=== PATIENT | female | born 1930 | race Caucasian/White ===

== ENCOUNTER 2017-12-28 13:52 | Inpatient (IN) | payer MEDICARE ==
[~2017-12-28] VITALS: Ht 175.3 cm; Wt 49.9 kg
--- NOTE | 2017-12-28 14:09 | NUR ---
87 YO FEMALE BIB [facility]. PATIENT IS ALERT AND ORIENTED, STATES SHE HAD A MECHANICAL FALL, DENIES KO, HAS RIGHT LEG PAIN. RIGHT LEG IS NOTED TO BE SHORTENED AND INTERNALLY ROTATED, GOOD PMS DISTAL TO PAIN SITE. PATIENT WAS DS TO ER BED, SKIN WARM AND DRY, RESP EVEN AND UNLABORED. AWAITING ORDERS FROM PROVIDER, WILL CONTINUE TO MONITOR
--- NOTE | 2017-12-28 14:12 | NUR ---
NOTED RIGHT FA SKIN TEAR
[2017-12-28] MEDS ORDERED: MORPHINE SULFATE INJ 2 MG/ML DISP.SYRIN ONE ×2 (14:16→14:47)
--- NOTE | 2017-12-28 14:20 | NUR ---
RECEIVED PATIENT FROM EMERGENCY ROOM NURSE KIKA. PATIENT IS COMPLAINING OF 5/10 RIGHT HIP PAIN BUT IMPROVED AFTER ADMINISTRATION OF MORPHINE AND FENTANYL PER PATIENT. BEDSIDE RAILS ARE UPX2. BED IS LOCKED AND LOWERED. IV LINE IS INTACT AND PATENT. CALL LIGHT IS WITHIN REACH. WILL CONTINUE TO MONITOR. Addendum: 12/28/17 at 1751 by TONYA MOLINA RN NOTE SHOULD READ AT 16:20.
[2017-12-28] MEDS ORDERED: IV NS 0.9% 500 ML BAG IV ONE (14:30)
[2017-12-28] MEDS ORDERED: MORPHINE SULFATE INJ 2 MG/ML DISP.SYRIN IV ONE ×2 (14:30→15:00)
[2017-12-28 14:34] LABS: BASOPHILS # (AUTO) 0.1 /CMM (0.0-0.2); BASOPHILS % (AUTO) 0.4 % (0.0-2.0); EOSINOPHILS % (AUTO) 1.4 % (0.0-6.0); HEMATOCRIT 40 % (33-45); HEMOGLOBIN 12.6 g/dL (11.5-14.8); LYMPHOCYTES % (AUTO) 13.9 % (20.0-44.0); MEAN CORPUSCULAR HEMOGLOBIN 22 PG (26.0-33.0); MEAN CORPUSCULAR HGB CONC 31 g/dl (31.0-36.0); MEAN CORPUSCULAR VOLUME 71 fL (82-100); MONOCYTES # (AUTO) 0.5 /CMM (0.1-1.30); MONOCYTES % (AUTO) 3.2 % (2.0-12.0); NEUTROPHILS # (AUTO) 11.6 /CMM (1.8-8.9); NEUTROPHILS % (AUTO) 81.1 % (43.0-81.0); PLATELET COUNT (AUTO) 443 /CMM (150-450); RED BLOOD CELL COUNT(AUTO) 5.68 MIL/uL (4.0-5.2); WHITE BLOOD COUNT (AUTO) 14.4 K/uL (4.3-11.0)
[2017-12-28 14:43] LABS: CALCIUM, SERUM 9.5 mg/dL (8.5-10.1); CARBON DIOXIDE 30 mmol/L (21-32); CHLORIDE 105 mmol/L (98-107); CREATININE 0.8 mg/dL (0.6-1.3); GLUCOSE 97 mg/dL (74-106); POTASSIUM 4.5 mmol/L (3.5-5.1); SODIUM SERUM 137 mmol/L (136-145); UREA NITROGEN, BLOOD 21 mg/dL (7-18)
[2017-12-28 14:48] LABS: INR 1.02 (0.85-1.15)
[2017-12-28 14:51] LABS: TROPONIN I < 0.017 ng/mL (0.00-0.056)
--- NOTE | 2017-12-28 14:55 | NUR ---
PATIENTS DAUGHTER LEFT CONCTACT INFO
--- NOTE | 2017-12-28 15:19 | NUR ---
seven ced[facility] took report for mariely
[2017-12-28] MEDS ORDERED: POLY17PO4 PO (15:28)
[2017-12-28] MEDS ORDERED: PANT20TA2 PO (15:28)
[2017-12-28] MEDS ORDERED: DIPH25CA46 PO (15:28)
[2017-12-28] MEDS ORDERED: ACET-868 PO (15:28)
[2017-12-28] MEDS ORDERED: MULT-24 PO (15:28)
[2017-12-28] MEDS ORDERED: LISI-607 PO (15:28)
[2017-12-28] MEDS ORDERED: DOCU-141 PO (15:28)
[2017-12-28] MEDS ORDERED: FENTANYL PF 100MCG/2ML AMPUL IV ONE (15:30)
[2017-12-28] MEDS ORDERED: ONDANSETRON HCL/PF 4 MG/2 ML VIAL IVP ONE (15:30)
[2017-12-28] MEDS ORDERED: IV NS 0.9% 1,000 ML BAG IV ONE (15:30)
--- NOTE | 2017-12-28 15:31 | NUR ---
CALLED ANGEL[facility] FIERRO [facility]CHER ELECTROLYTIC WAS PAGED.
[2017-12-28] MEDS ORDERED: FENTANYL PF 100MCG/2ML AMPUL ONE (15:38)
[2017-12-28] MEDS ORDERED: ONDANSETRON HCL/PF 4 MG/2 ML VIAL ONE (15:38)
[2017-12-28] MEDS ORDERED: ZOLPIDEM TARTRATE 5 MG TABLET PO PRN (16:00)
[2017-12-28] MEDS ORDERED: ACETAMINOPHEN 325 MG TABLET PO PRN ×2 (16:00→18:30)
[2017-12-28] MEDS ORDERED: ONDANSETRON HCL/PF 4 MG/2 ML VIAL IVP PRN (16:00)
[2017-12-28] MEDS ORDERED: MAGNESIUM HYDROXIDE 30 ML UDC PO PRN (16:00)
[2017-12-28] MEDS ORDERED: HYDROCODONE/APAP 5/325MG 1 EACH TABLET PO PRN (16:00)
[2017-12-28] MEDS ORDERED: Z GUARD REMEDY 2 OZ OINT TP PRN (16:00)
[2017-12-28] MEDS ORDERED: MAG HYDROX/AL HYDROX/SIMETH 30 ML UDC PO PRN (16:00)
--- NOTE | 2017-12-28 16:20 | NUR ---
transported pt to ms bed with emt without incident
--- NOTE | 2017-12-28 16:40 | NUR ---
PATIENT CONTINUES TO REFUSE KRUSE CATHETER. PER ER NURSE KIKA PATIENT HAS BEEN REFUSING KRUSE CATHETER SINCE ADMISSION TO ER. EXPLAINED RISKS AND BENEFITS OF INSERTING KRUSE CATHETER. PATIENT CONTINUES TO REFUSE. WILL CONTINUE ATTEMPTING TO CONVINCE PATIENT.
--- NOTE | 2017-12-28 17:30 | NUR ---
PATIENT REFUSES SKIN ASSESSMENT OF HER BACK AND BUTTOCKS AREA DUE TO NOT WANTING TO MOVE BECAUSE IT HURTS. THERE IS A RIGHT ELBOW SKIN TEAR. PICTURE WAS TAKEN AND DOCUMENTED.
--- NOTE | 2017-12-28 17:56 | NUR ---
INFORMED COUREY REGARDING ORTHO EVALUATION.
[2017-12-28] MEDS ORDERED: diphenhydrAMINE HCL 25 MG CAPSULE PO PRN (18:30)
[2017-12-28] MEDS ORDERED: POLYETHYLENE GLYCOL 3350 17 GM POWD.PACK PO PRN (18:30)
--- NOTE | 2017-12-28 18:57 | NUR ---
MS RN CLOSING NOTES PATIENT IS IN STABLE CONDITION. IN NO APPARENT DISTRESS. BEDSIDE RAILS ARE UPX2. BED IS LOCKED AND LOWERED. CALL LIGHT IS WITHIN REACH. ALL NEEDS WERE MET. IV LINE IS INTACT AND PATENT. WILL ENDORSE CARE TO BRIM CUTTER NURSE FOR LALA.
--- NOTE | 2017-12-28 19:20 | NUR ---
MS/SOCIAL MEDIA CONTENT MANAGER; RECEIVED PT IN BED AWAKE, ALERT AND VERBALLY RESPONSIVE. HL ON LT WRIST INTACT. PT IS WEARING DIAPER. AT THIS TIME ALSO OPERATOR COMMAND SUPPORT SYSTEMS CAME TO DO X RAY TO RT HIP AND DAY SHIFT RNTONYA TALKED TO THE OPERATOR COMMAND SUPPORT SYSTEMS ABOUT THE X RAY ORDER. HE SAID THE PT REFUSED THE X RAY DUE TO PAIN. BED ON LOWER POSITION AND LOCKED FOR SAFETY. SIDE RAILS ARE UP FOR SAFETY. CONTINUE TO MONITOR. CALL LIGHT WITHIN REACH.
--- NOTE | 2017-12-28 19:50 | NUR ---
MS/JEWELLERY DESIGNER; DR. PEREZ WITH ORDERS TO INSERT FC, APPLIED DVT PUMP AND X RAY RT FEMUR AND CHARGE NURSE DI CASTILLO AND HE TOLD ME TO GIVE PT PAIN SHOT SO THAT THE X RAY RT FEMUR CAN BE DONE. SO I TOLD THE RN WHO IS COVERING MY IV MED TO GIVE PT PAIN SHOT.
[2017-12-28] MEDS: MORPHINE SULFATE INJ 2 MG/ML DISP.SYRIN IV PRN (19:56)
--- NOTE | 2017-12-28 19:59 | NUR ---
PRN MORPHINE: PT C/O PAIN ON HER RIGHT HIP REQUESTING FOR PAIN MEDICATION, VS TAKEN AND RECORDED 153/70 HR 66 SPO2 96% RR 18, PRN MORPHINE 2MG IVP ADMINISTERED AT THIS TIME, WILL CONTINUE TO MONITOR AND REASSES
[2017-12-28 20:00] VITALS: BP 153/70
--- NOTE | 2017-12-28 20:00 | NUR ---
MS/LVNL I TOLD AND EXPLAINED TO THE PT THAT I NEED TO INSERT FC ORDERED BY THE DOCTOR. BUT PT REFUSED BADLY AND ALSO REFUSED THE DVT PUMP . I TOLD THE CHARGE NURSE OF THE ABOVE AND HE TALKED TO THE PT.
[2017-12-29] MEDS: MORPHINE SULFATE INJ 2 MG/ML DISP.SYRIN IV PRN ×3 (00:03→15:55)
--- NOTE | 2017-12-29 00:04 | NUR ---
PRN MORPHINE: PT C/O 02/21 PAIN ON RIGHT HIP REQUESTING FOR PAIN MEDICATION, PRN MORPHINE 2MG IVP ADMINISTERED TO THE PT AT THIS TIME, WILL CONTINUE TO MONITOR AND REASSESS
--- NOTE | 2017-12-29 05:00 | NUR ---
MS/CROCHETER HAND; INCONTINENT OF URINE LARGE AMOUNT YELLOW COLOR. PERINEAL CARE DONE. PT WAS SCREAMING NOT TO BE CHANGED. I EXPLAINED TO THE PT THAT WE NEED TO CLEAN HER UP AND CHANGE THE DIAPER. PT SAID IT IS PAINFUL . ALSO I DID ENCOURAGE AGAIN THE PT REGARDING TO PUT THE KRUSE CATH AND RE EXPLAINED TO HER AGAIN THE IMPORTANCE OF THE FC. AND SHE WILL HAVE PAIN SHOT. WAS ABLE TO CLEAN HER UP AND INSERTED FC FR # 16 WITH YELLOW RETURN. BED LINEN AND GOWN CHANGED. REPOSITIONED FOR COMFORT.
--- NOTE | 2017-12-29 05:39 | NUR ---
PRN MORPHINE: PT SCREAMING YELLING CRYING DUE TO RIGHT HIP PAIN, PRN MORPHINE 2 MG IVP ADMINISTERED AT THIS TIME, WILL CONTINUE TO MONITOR AND REASSESS PT'S PAIN LEVEL
[2017-12-29] MEDS ORDERED: IV NS 0.9% 1,000 ML IV PRN (06:46)
--- NOTE | 2017-12-29 06:58 | NUR ---
MS/ELECTRONIC DEVELOPMENT TECHNICIAN; DR. LEO CHECKED THE PT WITH ORDERS. PT SLEEPING AT THIS TIME. PT ON NPO OBSERVED. WILL ENDORSE TO THE DAY SHIFT NURSE.
--- NOTE | 2017-12-29 07:00 | NUR ---
RN OPENING NOTES RECEIVED PT. IN BED NPO AFTER MIDNIGHT. PT. IS AWAKE, A&OX3. BREATHING UNLABORED, AND EVENLY ON ROOM AIR. NO S/S OF ACUTE DISTRESS. PT. DENIES PAIN WHEN NOT MOVING IN BED. IV ACCESS IS INTACT AND PATENT AT LEFT WRIST SITE. KRUSE CATHETER CLEAR, AND YELLOW URINE OUTPUT. BED IS IN LOWEST, AND LOCKED POSITION. 2 SIDE RAILS UP, AND INSTRUCTED PT. TO USE CALL LIGHT FOR ASSISTANCE. ALL NEEDS MET. WILL CONTINUE TO ASSESS AND MONITOR.
[2017-12-29] MEDS ORDERED: PANTOPRAZOLE 40 MG/PACK PACK PO SCH (07:30)
[2017-12-29 07:43] LABS: EOSINOPHILS % (AUTO) 0.3 % (0.0-6.0); HEMATOCRIT 36 % (33-45); HEMOGLOBIN 11.2 g/dL (11.5-14.8); LYMPHOCYTES # (AUTO) 1.1 /CMM (0.8-4.8); LYMPHOCYTES % (AUTO) 8.2 % (20.0-44.0); MEAN CORPUSCULAR HEMOGLOBIN 23 PG (26.0-33.0); MEAN CORPUSCULAR HGB CONC 31 g/dl (31.0-36.0); MEAN CORPUSCULAR VOLUME 73 fL (82-100); MONOCYTES # (AUTO) 0.6 /CMM (0.1-1.30); MONOCYTES % (AUTO) 4.5 % (2.0-12.0); PLATELET COUNT (AUTO) 394 /CMM (150-450); RDW COEFFICIENT OF VARIATION 22.8 (11.5-15.0); RED BLOOD CELL COUNT(AUTO) 4.89 MIL/uL (4.0-5.2); WHITE BLOOD COUNT (AUTO) 13.8 K/uL (4.3-11.0)
[2017-12-29 08:00] VITALS: BP 148/75
--- NOTE | 2017-12-29 08:00 | NUR ---
PT. WAS PLACED ON TELE MONITORING PER MD. PT. TELE READING IS ATRIAL FIBRILLATION 63 BPM.
[2017-12-29 08:03] LABS: CHOLESTEROL 155 mg/dL (<200); HDL CHOLESTEROL 57 mg/dL (40-60); LDL 90 mg/dL (0-99); TRIGLYCERIDES 57 mg/dL (30-150)
[2017-12-29 08:13] LABS: CALCIUM, SERUM 9.1 mg/dL (8.5-10.1); CARBON DIOXIDE 27 mmol/L (21-32); CHLORIDE 104 mmol/L (98-107); CREATININE 0.6 mg/dL (0.6-1.3); GLUCOSE 102 mg/dL (74-106); MAGNESIUM 1.7 mg/dL (1.8-2.4); PHOSPHORUS 3.1 mg/dL (2.5-4.9); POTASSIUM 4.5 mmol/L (3.5-5.1); SODIUM SERUM 137 mmol/L (136-145); UREA NITROGEN, BLOOD 16 mg/dL (7-18)
[2017-12-29] MEDS: DOCUSATE SODIUM 100 MG CAPSULE PO SCH ×2 (08:37→17:00)
[2017-12-29] MEDS ORDERED: MULTIVITAMINS,THERAGRAN 1 UDTAB TABLET PO SCH (09:00)
[2017-12-29] MEDS ORDERED: LISINOPRIL (5MG) 5 MG TABLET PO SCH (09:00)
[2017-12-29 09:23] LABS: IRON, SERUM 50 ug/dl (50-175); TOTAL IRON BINDING CAPACITY 366 ug/dl (250-450)
--- NOTE | 2017-12-29 09:32 | NUR ---
TALKED TO PT.'S DAUGHTER LATONYA GOMEZ ON THE PHONE ABOUT THE SURGICAL PROCEDURE TODAY. REPORTED TO THE DAUGHTER THAT THE SURGEON WILL BE HERE AT 1 PM AND WOULD LIKE TO SPEAK TO HER IN PERSON IN FRONT OF HER MOTHER BEFORE AGREEING TO DO THE PROCEDURE. LATONYA CONFIRMED THAT SHE WILL BE HERE A FEW MINUTES BEFORE 1 PM TO SEE THE DOCTOR.
[2017-12-29 10:04] LABS: TROPONIN I < 0.017 ng/mL (0.00-0.056)
[2017-12-29 10:12] LABS: FERRITIN 20 ng/mL (8-388); THYROID STIMULATING HORMONE 2.703 uIU/mL (0.358-3.74)
[2017-12-29 11:38] LABS: BAND % (MANUAL) 2 % (0.0-5.0); LYMPHOCYTES % (MANUAL) 7 % (16-48); MONOCYTES % (MANUAL) 2 % (0-11.0); NEUTROPHILS % (MANUAL) 89 (42-76)
[2017-12-29] MEDS ORDERED: HYDR-3972 PO (11:56)
[2017-12-29] MEDS ORDERED: Morphine Sulfate Inj IV (11:56)
[2017-12-29] MEDS ORDERED: MAG30ORA PO (11:56)
[2017-12-29] MEDS ORDERED: MAGN400O6 PO (11:56)
[2017-12-29 12:00] VITALS: BP 152/70
[2017-12-29] MEDS: Magnesium 1GM/D5W 100ML PREMIX 100 ML IV SCH ×2 (12:08→13:15)
--- NOTE | 2017-12-29 13:44 | NUR ---
RN NOTES PER CHARGE NURSE, PT.'S FAMILY DECIDED TO TRANSFER PT. TO [facility] FOR SURGICAL PROCEDURE. PT. WILL RESUME REGULAR DIET. AT THIS TIME PT. IS AWAITING WHEN A BED BECOMES AVAILABLE AT [facility].
[2017-12-29 16:00] VITALS: BP 148/75
--- NOTE | 2017-12-29 17:00 | NUR ---
GAVE A PHONE REPORT TO QIANA HAYWOOD AT [facility]. PT. WILL BE GOING TO ROOM 5210. ALL QUESTIONS ANSWERED.
--- NOTE | 2017-12-29 19:36 | NUR ---
DIRECT CARE PROFESSIONAL PT. WAS DISCHARGED TO [facility] IN STABLE CONDITION. PT. LEFT BY AMBULANCE. DISCHARGE INSTRUCTIONS WERE PROVIDED AND PT. VERBALIZED UNDERSTANDING. DISCHARGE PAPERS WERE SIGNED. BELONGINGS LIST WAS CHECKED AND SIGNED. PT.'S BELONGINGS WERE LEFT BEHIND, [facility] WAS CONTACTED BELONGINGS ARE HERE. A CD OF RADIOGRAPHIC IMAGES WERE PLACED IN DISCHARGE PACKET. AMBULANCE CREW LEFT WITH DISCHARGE PACKET AND REPORT WAS GIVEN. PT. WAS GIVEN PAIN MEDICATION BEFORE TRANSFERRING ON TO A GURNEY.
== END 2017-12-29 19:30 | disposition short-term general hospital (02) | DRG 533 ==
LOC: ER 13:54 → MED 15:34 → TELE 12-29 08:01
PROVIDERS: ADMIT Family Medicine; ATTEND Family Medicine
DX: S72.301A Unspecified fracture of shaft of right femur, initial encounter for closed fracture (principal); N17.0 Acute kidney failure with tubular necrosis; W01.0XXA Fall on same level from slipping, tripping and stumbling without subsequent striking against object, initial encounter; Y92.9 Unspecified place or not applicable; D72.829 Elevated white blood cell count, unspecified; F03.90 Unspecified dementia, unspecified severity, without behavioral disturbance, psychotic disturbance, mood disturbance, and anxiety; I10 Essential (primary) hypertension; I48.91 Unspecified atrial fibrillation; Z91.010 Allergy to peanuts; Z79.899 Other long term (current) drug therapy; Z86.73 Personal history of transient ischemic attack (TIA), and cerebral infarction without residual deficits; Z91.81 History of falling
CPT/HCPCS: 36415; 71045-TC; 73502; 73552; 80048-TC; 80061-TC; 82306; 82728-TC; 83540-TC; 83735-TC; 84100-TC; 84439-TC; 84443-TC; 84484-TC; 85025-TC; 85730-TC; 86850-TC; 87081-TC; 93307-TC; A4606; A6403; J2270; J2405; J3010; J3475; J7030; Q0163; Z7610

== ENCOUNTER 2018-12-04 18:08 | Inpatient (IN) | payer MEDICARE ==
[~2018-12-04] VITALS: Ht 172.7 cm; Wt 54.0 kg
[~2018-12-04 18:08] MED LIST: ACET-868 PO; DIPH25CA46 PO; DOCU-141 PO; HYDR-3972 PO; LISI-607 PO; MAG30ORA PO; MAGN400O6 PO; MULT-24 PO; Morphine Sulfate Inj IV; PANT20TA2 PO; POLY17PO4 PO
[2018-12-04] MEDS ORDERED: PIPERACILLIN /TAZOBACTAM 3.375 G in IV D5W 50 ML IV ONE (18:30)
[2018-12-04] MEDS ORDERED: IV NS 0.9% 1,000 ML BAG IV ONE (18:30)
[2018-12-04 18:44] LABS: BASOPHILS # (AUTO) 0.1 /CMM (0.0-0.2); BASOPHILS % (AUTO) 0.5 % (0.0-2.0); EOSINOPHILS % (AUTO) 0.8 % (0.0-6.0); HEMATOCRIT 36 % (33-45); HEMOGLOBIN 11.2 g/dL (11.5-14.8); LYMPHOCYTES # (AUTO) 1.1 /CMM (0.8-4.8); LYMPHOCYTES % (AUTO) 7.8 % (20.0-44.0); MEAN CORPUSCULAR HGB CONC 31 g/dl (31.0-36.0); MEAN CORPUSCULAR VOLUME 66 fL (82-100); MONOCYTES # (AUTO) 0.6 /CMM (0.1-1.30); MONOCYTES % (AUTO) 4.5 % (2.0-12.0); NEUTROPHILS # (AUTO) 12.4 /CMM (1.8-8.9); NEUTROPHILS % (AUTO) 86.4 % (43.0-81.0); PLATELET COUNT (AUTO) 440 /CMM (150-450); RED BLOOD CELL COUNT(AUTO) 5.48 MIL/uL (4.0-5.2); WHITE BLOOD COUNT (AUTO) 14.3 K/uL (4.3-11.0)
[2018-12-04] MEDS ORDERED: PIPERACILLIN /TAZOBACTAM 3.375 G VIAL IV ONE (18:49)
[2018-12-04 18:53] LABS: CARBON DIOXIDE 26 mmol/L (21-32); CHLORIDE 102 mmol/L (98-107); CREATININE 0.5 mg/dL (0.6-1.3); GLUCOSE 143 mg/dL (74-106); SODIUM SERUM 135 mmol/L (136-145); UREA NITROGEN, BLOOD 14 mg/dL (7-18)
[2018-12-04 18:59] LABS: ALANINE AMINOTRANSFERASE 14 U/L (12-78); ALBUMIN 3.4 g/dL (3.4-5.0); ALKALINE PHOSPHATASE 96 U/L (46-116); ASPARTATE AMINOTRANSFERASE 11 U/L (15-37); BILIRUBIN,DIRECT 0.1 mg/dL (0.0-0.2); BILIRUBIN,TOTAL 0.5 mg/dL (0.2-1.0)
[2018-12-04 19:32] LABS: APPEARANCE,URINE Clear (CLEAR); BILIRUBIN,URINE Negative (NEGATIVE); BLOOD, URINE Negative Ery/uL (NEGATIVE); COLOR,URINE Light yellow (YELLOW); KETONES,URINE Negative (NEGATIVE); LEUKOCYTE ESTERASE ,URINE Negative (NEGATIVE); NITRITE, URINE Negative (NEGATIVE); PROTEIN,URINE Negative (NEGATIVE); UGLUCOSE Negative (NEGATIVE); UROBILINOGEN,URINE 0.2 EU/dL (0.2)
[2018-12-04 20:05] LABS: BAND % (MANUAL) 3 % (0.0-5.0); EOSINOPHILS % (MANUAL) 1 % (0-4); LYMPHOCYTES % (MANUAL) 7 % (16-48); MONOCYTES % (MANUAL) 4 % (0-11.0); NEUTROPHILS % (MANUAL) 85 (42-76)
[2018-12-04] MEDS ORDERED: MIRT15TA7 PO (20:54)
[2018-12-04] MEDS ORDERED: QUET25TA PO (20:54)
[2018-12-04 22:12] VITALS: BP 155/76
[2018-12-04] MEDS ORDERED: IV NS 0.9% 1,000 ML IV PRN (23:31)
[2018-12-05] VITALS: BP 182/84
[2018-12-05] MEDS ORDERED: ACETAMINOPHEN 325 MG TABLET PO PRN
[2018-12-05] MEDS ORDERED: DEXAMETHASONE SOD PHOSPHATE 10 MG/ML VIAL IV ONE
[2018-12-05] MEDS ORDERED: Z GUARD REMEDY 2 OZ OINT TP PRN
[2018-12-05] MEDS ORDERED: ONDANSETRON HCL/PF 4 MG/2 ML VIAL IVP PRN
[2018-12-05] MEDS ORDERED: VANCOMYCIN 1 GM in IV D5W 250ml IV SCH (01:00)
[2018-12-05] MEDS ORDERED: VANCOMYCIN 1 GM VIAL ONE (01:10)
[2018-12-05] MEDS ORDERED: CEFTRIAXONE 1 G VIAL ONE (01:10)
[2018-12-05] MEDS: CEFTRIAXONE 1 G in IV D5W 50 ML IV SCH ×2 (01:20→23:09)
[2018-12-05] MEDS: ENOXAPARIN SODIUM 40 MG/0.4 ML DISP.SYRIN SQ SCH ×2 (01:35→09:30)
[2018-12-05] MEDS ORDERED: hydrALAZINE HCL 50 MG TABLET PO PRN (02:00)
[2018-12-05] MEDS: ALBUTEROL FS 2.5 MG/0.5 ML VIAL.NEB NEB SCH ×8 (03:06→23:46)
[2018-12-05] MEDS: IPRATROPIUM NEB FS 0.5 MG/2.5 ML AMPUL.NEB NEB SCH ×8 (03:06→23:46)
[2018-12-05 04:00] VITALS: BP 117/68
[2018-12-05 06:35] LABS: BASOPHILS # (AUTO) 0.1 /CMM (0.0-0.2); BASOPHILS % (AUTO) 0.5 % (0.0-2.0); EOSINOPHILS % (AUTO) 0.2 % (0.0-6.0); HEMATOCRIT 36 % (33-45); LYMPHOCYTES # (AUTO) 0.4 /CMM (0.8-4.8); MEAN CORPUSCULAR HGB CONC 31 g/dl (31.0-36.0); MEAN CORPUSCULAR VOLUME 66 fL (82-100); MONOCYTES # (AUTO) 0.4 /CMM (0.1-1.30); MONOCYTES % (AUTO) 2.6 % (2.0-12.0); NEUTROPHILS # (AUTO) 13.6 /CMM (1.8-8.9); NEUTROPHILS % (AUTO) 93.7 % (43.0-81.0); PLATELET COUNT (AUTO) 373 /CMM (150-450); RED BLOOD CELL COUNT(AUTO) 5.43 MIL/uL (4.0-5.2); WHITE BLOOD COUNT (AUTO) 14.5 K/uL (4.3-11.0)
[2018-12-05 06:42] LABS: ALANINE AMINOTRANSFERASE 11 U/L (12-78); ALBUMIN 3.2 g/dL (3.4-5.0); ALKALINE PHOSPHATASE 84 U/L (46-116); ASPARTATE AMINOTRANSFERASE 7 U/L (15-37); BILIRUBIN,TOTAL 0.4 mg/dL (0.2-1.0); CALCIUM, SERUM 9.6 mg/dL (8.5-10.1); CARBON DIOXIDE 26 mmol/L (21-32); CHLORIDE 103 mmol/L (98-107); CREATININE 0.6 mg/dL (0.6-1.3); GLUCOSE 118 mg/dL (74-106); MAGNESIUM 1.7 mg/dL (1.8-2.4); POTASSIUM 4.1 mmol/L (3.5-5.1); SODIUM SERUM 137 mmol/L (136-145); TOTAL PROTEIN, SERUM 6.6 g/dL (6.4-8.2); UREA NITROGEN, BLOOD 12 mg/dL (7-18)
[2018-12-05 06:43] LABS: IRON, SERUM 15 ug/dl (50-175); TOTAL IRON BINDING CAPACITY 402 ug/dl (250-450)
[2018-12-05 06:48] LABS: CHOLESTEROL 147 mg/dL (<200); HDL CHOLESTEROL 55 mg/dL (40-60); LDL 85 mg/dL (0-99); THYROID STIMULATING HORMONE 2.286 uIU/mL (0.358-3.74); TRIGLYCERIDES 39 mg/dL (30-150)
[2018-12-05 07:57] LABS: BAND % (MANUAL) 2 % (0.0-5.0); LYMPHOCYTES % (MANUAL) 4 % (16-48); MONOCYTES % (MANUAL) 2 % (0-11.0); NEUTROPHILS % (MANUAL) 92 (42-76)
[2018-12-05 08:00] VITALS: BP 125/58
[2018-12-05] MEDS: LISINOPRIL (5MG) 5 MG TABLET PO SCH (09:31)
[2018-12-05] MEDS: FERROUS SULFATE (325 MG) 325 MG/TAB TABLET PO SCH ×2 (09:31→17:15)
[2018-12-05] MEDS: FAMOTIDINE (20 MG) 20 MG TABLET PO SCH ×2 (09:31→20:00)
[2018-12-05] MEDS: Magnesium 1GM/D5W 100ML PREMIX 100 ML IV SCH ×2 (09:31→11:09)
[2018-12-05] MEDS ORDERED: FEE PK DOSING 1 MIN EA MC ONE (12:51)
[2018-12-05 16:00] VITALS: BP 119/73
[2018-12-05] MEDS: QUETIAPINE FUMARATE 25 MG TABLET PO SCH (17:15)
[2018-12-05] MEDS: VANCOMYCIN 0.75 GM in IV D5W 250 ML IV SCH (19:55)
[2018-12-05 20:00] VITALS: BP 125/68
[2018-12-05] MEDS: MIRTAZAPINE 15 MG TABLET PO SCH (21:18)
[2018-12-06] MEDS: IPRATROPIUM NEB FS 0.5 MG/2.5 ML AMPUL.NEB NEB SCH ×6 (03:30→23:08)
[2018-12-06] MEDS: ALBUTEROL FS 2.5 MG/0.5 ML VIAL.NEB NEB SCH ×6 (03:30→23:08)
[2018-12-06 06:19] LABS: BASOPHILS # (AUTO) 0.1 /CMM (0.0-0.2); BASOPHILS % (AUTO) 0.6 % (0.0-2.0); EOSINOPHILS % (AUTO) 1.6 % (0.0-6.0); HEMATOCRIT 33 % (33-45); LYMPHOCYTES # (AUTO) 1.3 /CMM (0.8-4.8); LYMPHOCYTES % (AUTO) 6.8 % (20.0-44.0); MEAN CORPUSCULAR HGB CONC 31 g/dl (31.0-36.0); MEAN CORPUSCULAR VOLUME 66 fL (82-100); MONOCYTES # (AUTO) 0.9 /CMM (0.1-1.30); MONOCYTES % (AUTO) 4.6 % (2.0-12.0); NEUTROPHILS # (AUTO) 16.2 /CMM (1.8-8.9); NEUTROPHILS % (AUTO) 86.4 % (43.0-81.0); PLATELET COUNT (AUTO) 354 /CMM (150-450); RED BLOOD CELL COUNT(AUTO) 4.93 MIL/uL (4.0-5.2); WHITE BLOOD COUNT (AUTO) 18.7 K/uL (4.3-11.0)
[2018-12-06 06:39] LABS: CALCIUM, SERUM 9.6 mg/dL (8.5-10.1); CARBON DIOXIDE 23 mmol/L (21-32); CHLORIDE 108 mmol/L (98-107); CREATININE 0.7 mg/dL (0.6-1.3); GLUCOSE 84 mg/dL (74-106); MAGNESIUM 2.2 mg/dL (1.8-2.4); POTASSIUM 4.1 mmol/L (3.5-5.1); SODIUM SERUM 141 mmol/L (136-145); UREA NITROGEN, BLOOD 19 mg/dL (7-18)
[2018-12-06 07:47] LABS: BAND % (MANUAL) 2 % (0.0-5.0); LYMPHOCYTES % (MANUAL) 7 % (16-48); NEUTROPHILS % (MANUAL) 85 (42-76)
[2018-12-06 07:48] LABS: EOSINOPHILS % (MANUAL) 4 % (0-4); MONOCYTES % (MANUAL) 2 % (0-11.0)
[2018-12-06] MEDS: FAMOTIDINE (20 MG) 20 MG TABLET PO SCH ×2 (08:37→21:26)
[2018-12-06] MEDS: FERROUS SULFATE (325 MG) 325 MG/TAB TABLET PO SCH ×2 (08:37→17:21)
[2018-12-06] MEDS: LISINOPRIL (5MG) 5 MG TABLET PO SCH (08:39)
[2018-12-06] MEDS: IV NS 0.9% 1,000 ML IV PRN (12:39)
[2018-12-06] MEDS: VANCOMYCIN 0.75 GM in IV D5W 250 ML IV SCH (14:14)
[2018-12-06 16:00] VITALS: BP 132/61
[2018-12-06] MEDS: LACTOBACILLUS RHAMNOSUS GG 1 EACH CAP.SPRINK PO SCH (17:21)
[2018-12-06] MEDS: QUETIAPINE FUMARATE 25 MG TABLET PO SCH (17:21)
[2018-12-06] MEDS ORDERED: PIPERACILLIN /TAZOBACTAM 3.375 G in IV D5W 50 ML IV ONE ×4 (18:00)
[2018-12-06 20:00] VITALS: BP 134/65
[2018-12-06] MEDS: MIRTAZAPINE 15 MG TABLET PO SCH (21:25)
[2018-12-06] MEDS: PIPERACILLIN /TAZOBACTAM 3.375 G in IV D5W 100 ML IV SCH (23:46)
[2018-12-06] MEDS: ENOXAPARIN SODIUM 40 MG/0.4 ML DISP.SYRIN SQ SCH (23:50)
[2018-12-07] MEDS: IPRATROPIUM NEB FS 0.5 MG/2.5 ML AMPUL.NEB NEB SCH ×6 (03:30→23:30)
[2018-12-07] MEDS: ALBUTEROL FS 2.5 MG/0.5 ML VIAL.NEB NEB SCH ×6 (03:30→23:30)
[2018-12-07 06:47] LABS: BASOPHILS # (AUTO) 0.1 /CMM (0.0-0.2); BASOPHILS % (AUTO) 0.5 % (0.0-2.0); EOSINOPHILS % (AUTO) 3.5 % (0.0-6.0); HEMATOCRIT 33 % (33-45); LYMPHOCYTES # (AUTO) 1.4 /CMM (0.8-4.8); LYMPHOCYTES % (AUTO) 10.3 % (20.0-44.0); MEAN CORPUSCULAR HGB CONC 31 g/dl (31.0-36.0); MEAN CORPUSCULAR VOLUME 66 fL (82-100); MONOCYTES # (AUTO) 0.7 /CMM (0.1-1.30); NEUTROPHILS % (AUTO) 80.7 % (43.0-81.0); PLATELET COUNT (AUTO) 372 /CMM (150-450); RED BLOOD CELL COUNT(AUTO) 4.92 MIL/uL (4.0-5.2); WHITE BLOOD COUNT (AUTO) 13.6 K/uL (4.3-11.0)
[2018-12-07 07:09] LABS: CALCIUM, SERUM 9.2 mg/dL (8.5-10.1); CARBON DIOXIDE 22 mmol/L (21-32); CHLORIDE 109 mmol/L (98-107); CREATININE 0.7 mg/dL (0.6-1.3); GLUCOSE 80 mg/dL (74-106); POTASSIUM 4.2 mmol/L (3.5-5.1); SODIUM SERUM 141 mmol/L (136-145); UREA NITROGEN, BLOOD 20 mg/dL (7-18)
[2018-12-07 08:00] VITALS: BP 124/66
[2018-12-07] MEDS: PIPERACILLIN /TAZOBACTAM 3.375 G in IV D5W 100 ML IV SCH ×3 (09:15→23:17)
[2018-12-07] MEDS: LACTOBACILLUS RHAMNOSUS GG 1 EACH CAP.SPRINK PO SCH ×2 (09:16→16:47)
[2018-12-07] MEDS: FAMOTIDINE (20 MG) 20 MG TABLET PO SCH ×2 (09:16→21:29)
[2018-12-07] MEDS: FERROUS SULFATE (325 MG) 325 MG/TAB TABLET PO SCH ×2 (09:16→16:47)
[2018-12-07] MEDS: LISINOPRIL (5MG) 5 MG TABLET PO SCH (09:17)
[2018-12-07 09:39] LABS: EOSINOPHILS % (MANUAL) 4 % (0-4); LYMPHOCYTES % (MANUAL) 10 % (16-48); MONOCYTES % (MANUAL) 3 % (0-11.0); NEUTROPHILS % (MANUAL) 83 (42-76)
[2018-12-07] MEDS: IV NS 0.9% 1,000 ML IV PRN ×2 (09:59→23:17)
[2018-12-07 16:00] VITALS: BP 135/85
[2018-12-07] MEDS: QUETIAPINE FUMARATE 25 MG TABLET PO SCH (17:36)
[2018-12-07 20:00] VITALS: BP 135/60
[2018-12-07] MEDS ORDERED: MUPIROCIN OINT 2% 22 GM TUBE SCH (21:00)
[2018-12-07] MEDS: MUPIROCIN OINT 2% 22 GM TUBE SCH (21:28)
[2018-12-07] MEDS: DOXYCYCLINE HYCLATE (100 MG) 100 MG TABLET PO SCH (21:29)
[2018-12-07] MEDS: MIRTAZAPINE 15 MG TABLET PO SCH (21:29)
[2018-12-07] MEDS: ENOXAPARIN SODIUM 40 MG/0.4 ML DISP.SYRIN SQ SCH (23:18)
[2018-12-08] MEDS: IPRATROPIUM NEB FS 0.5 MG/2.5 ML AMPUL.NEB NEB SCH ×3 (03:30→11:04)
[2018-12-08] MEDS: ALBUTEROL FS 2.5 MG/0.5 ML VIAL.NEB NEB SCH ×3 (03:30→11:04)
[2018-12-08 06:29] LABS: BASOPHILS # (AUTO) 0.1 /CMM (0.0-0.2); BASOPHILS % (AUTO) 0.9 % (0.0-2.0); EOSINOPHILS % (AUTO) 3.9 % (0.0-6.0); HEMATOCRIT 34 % (33-45); HEMOGLOBIN 10.5 g/dL (11.5-14.8); LYMPHOCYTES # (AUTO) 1.3 /CMM (0.8-4.8); LYMPHOCYTES % (AUTO) 10.3 % (20.0-44.0); MEAN CORPUSCULAR HGB CONC 31 g/dl (31.0-36.0); MEAN CORPUSCULAR VOLUME 66 fL (82-100); MONOCYTES # (AUTO) 0.6 /CMM (0.1-1.30); MONOCYTES % (AUTO) 4.8 % (2.0-12.0); NEUTROPHILS # (AUTO) 9.8 /CMM (1.8-8.9); NEUTROPHILS % (AUTO) 80.1 % (43.0-81.0); PLATELET COUNT (AUTO) 386 /CMM (150-450); WHITE BLOOD COUNT (AUTO) 12.2 K/uL (4.3-11.0)
[2018-12-08 06:41] LABS: CALCIUM, SERUM 9.2 mg/dL (8.5-10.1); CARBON DIOXIDE 23 mmol/L (21-32); CHLORIDE 109 mmol/L (98-107); CREATININE 0.7 mg/dL (0.6-1.3); GLUCOSE 90 mg/dL (74-106); POTASSIUM 4.1 mmol/L (3.5-5.1); SODIUM SERUM 140 mmol/L (136-145); UREA NITROGEN, BLOOD 20 mg/dL (7-18)
[2018-12-08 08:00] VITALS: BP 154/68
[2018-12-08] MEDS ORDERED: MUPI22OI7 MC (08:06)
[2018-12-08] MEDS ORDERED: DOXY100C41 PO (08:06)
[2018-12-08] MEDS ORDERED: AMOX-427 PO (08:06)
[2018-12-08] MEDS: PIPERACILLIN /TAZOBACTAM 3.375 G in IV D5W 100 ML IV SCH (08:43)
[2018-12-08] MEDS: MUPIROCIN OINT 2% 22 GM TUBE SCH (09:11)
[2018-12-08 09:15] VITALS: BP 154/68
[2018-12-08] MEDS: LISINOPRIL (5MG) 5 MG TABLET PO SCH (09:15)
[2018-12-08] MEDS: DOXYCYCLINE HYCLATE (100 MG) 100 MG TABLET PO SCH (09:15)
[2018-12-08] MEDS: FERROUS SULFATE (325 MG) 325 MG/TAB TABLET PO SCH (09:16)
[2018-12-08] MEDS: LACTOBACILLUS RHAMNOSUS GG 1 EACH CAP.SPRINK PO SCH (09:16)
[2018-12-08] MEDS: FAMOTIDINE (20 MG) 20 MG TABLET PO SCH (09:17)
== END 2018-12-08 13:30 | disposition home or self-care (01) | DRG 193 ==
LOC: ER 18:11 → TELE 20:32 → MED 12-05 11:06
PROVIDERS: ADMIT Nurse Practitioner Acute Care; ATTEND Nurse Practitioner Acute Care
DX: J15.9 Unspecified bacterial pneumonia (principal); G93.41 Metabolic encephalopathy; E87.1 Hypo-osmolality and hyponatremia; D68.59 Other primary thrombophilia; F03.91 Unspecified dementia, unspecified severity, with behavioral disturbance; E44.1 Mild protein-calorie malnutrition; Z68.1 Body mass index [BMI] 19.9 or less, adult; I48.91 Unspecified atrial fibrillation; E83.42 Hypomagnesemia; K59.09 Other constipation; Z86.73 Personal history of transient ischemic attack (TIA), and cerebral infarction without residual deficits; I10 Essential (primary) hypertension; D50.9 Iron deficiency anemia, unspecified; E88.09 Other disorders of plasma-protein metabolism, not elsewhere classified; D69.2 Other nonthrombocytopenic purpura; S81.811A Laceration without foreign body, right lower leg, initial encounter; X58.XXXA Exposure to other specified factors, initial encounter; Y93.9 Activity, unspecified; Y92.89 Other specified places as the place of occurrence of the external cause; R91.8 Other nonspecific abnormal finding of lung field
CPT/HCPCS: 36415; 71045-TC; 80048-TC; 80053-TC; 80061-TC; 80076-TC; 81000-TC; 83540-TC; 83605-TC; 83735-TC; 84100-TC; 84443-TC; 84484-TC; 85025-TC; 85045-TC; 85730-TC; 87040-TC; 87081-TC; 87086-TC; 93307-TC; 94799-TC; 97530-TC; A6403; G0378; J0696; J1100; J1650; J2543; J3370; J3475; J7030; J7050; J7060

== ENCOUNTER 2019-05-30 10:44 | Emergency (ER) | payer MEDICARE ==
[~2019-05-30] VITALS: Ht 162.6 cm; Wt 56.7 kg
[~2019-05-30 10:44] MED LIST changes: -ACET-868 PO; +AMOX-427 PO; -DIPH25CA46 PO; -DOCU-141 PO; +DOXY100C41 PO; -HYDR-3972 PO; -MAG30ORA PO; -MAGN400O6 PO; +MIRT15TA7 PO; -MULT-24 PO; +MUPI22OI7 MC; -Morphine Sulfate Inj IV; -POLY17PO4 PO; +QUET25TA PO
--- NOTE | 2019-05-30 10:49 | NUR ---
MARTY 878 FROM [facility], UNWITNESSED FALL LAST NIGHT, "ROLLED OUT OF BED AND NOW COMPLAINING OF HIP PAIN". ALSO C/O BACK PAIN. TO ER BED 10, HOOKED TO MONITOR, CHANGED TO HOSP GOWN, PROVIDED W WARM BLANKET, AWAITING MD ZHANG.
--- NOTE | 2019-05-30 10:55 | NUR ---
LATONYA WALLER (DAUGHTER). DAUGHTER WANTS PT TO BE TRANSFERED TO [facility] IF POSSIBLE ADMISSION, DUE TO INFO AT [facility]. PHONE NUMBER [phone].
[2019-05-30] MEDS ORDERED: ACET-868 PO (10:57)
[2019-05-30] MEDS ORDERED: DIPH28.34 TP (10:57)
[2019-05-30] MEDS ORDERED: DOCU-141 PO (10:57)
[2019-05-30] MEDS ORDERED: DIPH25CA46 PO (10:57)
[2019-05-30] MEDS ORDERED: POLY17PO4 PO (10:57)
[2019-05-30] MEDS ORDERED: MULT1TAB62 PO (10:57)
--- NOTE | 2019-05-30 10:58 | NUR ---
NURSING FACILITY CALLED STATING THAT PT WAS FOUND ON THE FLOOR BY CAREGIVER AROUND [phone]. WHEN CAREGIVER ASSISTED PT BACK TO BED, PT WAS NOT COMPLAINING OF PAIN OR ISSUES. ACCORDING TO PT SHE SLID AND FELL. AROUND 0900 WHEN IT WAS TIME FOR RESIDENTS TO BEGIN ACTIVITES, PT WAS COMPLAINING OF PAIN BUT NO SPECIFIC REGION. INFORMATION ACQUIRED PER NURSING FACILITY.
--- NOTE | 2019-05-30 10:59 | NUR ---
DR MONTOYA AT BEDSIDE
--- NOTE | 2019-05-30 14:03 | NUR ---
CALLED [facility] ETA 1530. TRIP [phone].
[2019-05-30] MEDS ORDERED: ACETAMINOPHEN ES 500 MG TABLET ONE (16:08)
--- NOTE | 2019-05-30 16:21 | NUR ---
Patient discharged to [facility] unit 113 in stable condition. Written and verbal after care instructions given to EMT. Patient will be brought back to [facility].
[2019-05-30 16:25] VITALS: BP 156/73
[2019-05-30] MEDS ORDERED: ACETAMINOPHEN 325 MG TABLET PO ONE (16:30)
== END 2019-05-30 16:26 ==
LOC: ER 10:45
DX: F03.90 Unspecified dementia, unspecified severity, without behavioral disturbance, psychotic disturbance, mood disturbance, and anxiety (principal); L98.9 Disorder of the skin and subcutaneous tissue, unspecified; R41.0 Disorientation, unspecified; I48.91 Unspecified atrial fibrillation; I10 Essential (primary) hypertension; Z79.899 Other long term (current) drug therapy
CPT/HCPCS: 70450-TC; 71045-TC; 72125-TC; 73590-TC

== ENCOUNTER 2019-10-11 07:39 | Emergency (ER) | payer MEDICARE ==
[~2019-10-11] VITALS: Ht 170.2 cm; Wt 50.3 kg
[~2019-10-11 07:39] MED LIST changes: +ACET-868 PO; -AMOX-427 PO; +DIPH25CA46 PO; +DIPH28.34 TP; +DOCU-141 PO; -DOXY100C41 PO; -MIRT15TA7 PO; +MULT1TAB62 PO; -MUPI22OI7 MC; +POLY17PO4 PO; -QUET25TA PO
--- NOTE | 2019-10-11 07:39 | NUR ---
PT BIBRA 102 FROM SNF C/O SYNCOPAL EPISODE AROUND 0630H, PT IS AAOX1, NOT IN RESPIRATORY DISTRESSM HOOKED TO MOTORCYCLE TECHNICIAN, KEPT RESTED AND COMFORTABLE, WILL CONTINUE TO MONITOR.
--- NOTE | 2019-10-11 07:39 | NUR ---
SEEN AND EXAMINED BY .
--- NOTE | 2019-10-11 07:40 | NUR ---
IV LINE ESTABLISHED BLOOD DRAWN AND SENT TO LAB.
--- NOTE | 2019-10-11 07:54 | NUR ---
BUFFING WHEEL FORMER MACHINE AT BEDSIDE FOR XRAY.
[2019-10-11 08:33] LABS: ALBUMIN 2.8 g/dL (3.4-5.0); BILIRUBIN,DIRECT 0.1 mg/dL (0.0-0.2); BILIRUBIN,TOTAL 0.4 mg/dL (0.2-1.0); CALCIUM, SERUM 9.6 mg/dL (8.5-10.1); CREATININE 0.6 mg/dL (0.6-1.3); POTASSIUM 4.3 mmol/L (3.5-5.1); TOTAL PROTEIN, SERUM 6.1 g/dL (6.4-8.2)
[2019-10-11 08:34] LABS: BASOPHILS # (AUTO) 0.1 /CMM (0.0-0.2); BASOPHILS % (AUTO) 0.5 % (0.0-2.0); EOSINOPHILS % (AUTO) 1.3 % (0.0-6.0); HEMATOCRIT 41 % (33-45); HEMOGLOBIN 12.4 g/dL (11.5-14.8); LYMPHOCYTES # (AUTO) 1.8 /CMM (0.8-4.8); LYMPHOCYTES % (AUTO) 11.4 % (20.0-44.0); MEAN CORPUSCULAR HGB CONC 30 g/dl (31.0-36.0); MEAN CORPUSCULAR VOLUME 68 fL (82-100); MONOCYTES # (AUTO) 0.8 /CMM (0.1-1.30); MONOCYTES % (AUTO) 4.9 % (2.0-12.0); NEUTROPHILS # (AUTO) 13.1 /CMM (1.8-8.9); NEUTROPHILS % (AUTO) 81.9 % (43.0-81.0); PLATELET COUNT (AUTO) 520 /CMM (150-450); RED BLOOD CELL COUNT(AUTO) 6.07 MIL/uL (4.0-5.2); WHITE BLOOD COUNT (AUTO) 16.1 K/uL (4.3-11.0)
--- NOTE | 2019-10-11 08:59 | NUR ---
CALLED LATONYA DAUGHERTY DAUGHTER AND TORRES DUARTE OF THE SNF FOR PT DISCHARGED BACK TO FACILITY.
--- NOTE | 2019-10-11 09:00 | NUR ---
CALLED [facility] FOR TRANSPORT TO [facility]. ETA 25-30 MINUTES.
[2019-10-11 09:29] LABS: BAND % (MANUAL) 1 % (0.0-5.0); EOSINOPHILS % (MANUAL) 1 % (0-4); LYMPHOCYTES % (MANUAL) 5 % (16-48); MONOCYTES % (MANUAL) 7 % (0-11.0); NEUTROPHILS % (MANUAL) 86 (42-76)
--- NOTE | 2019-10-11 09:40 | NUR ---
REPORT GIVEN TO EMT FOR PT DISCHARGED BACK TO SNF.
--- NOTE | 2019-10-11 09:47 | NUR ---
IV removed. Catheter intact and site benign. Pressure and 4x4 applied to site. No bleeding noted. Patient discharged to home in stable condition. Written and verbal after care instructions given. Patient verbalizes understanding of instruction.
[2019-10-11 09:48] VITALS: BP 144/58
== END 2019-10-11 09:49 | disposition home or self-care (01) ==
LOC: ER 07:40
DX: R55 Syncope and collapse (principal); I10 Essential (primary) hypertension; I48.91 Unspecified atrial fibrillation; K21.9 Gastro-esophageal reflux disease without esophagitis; Z79.899 Other long term (current) drug therapy; Z86.73 Personal history of transient ischemic attack (TIA), and cerebral infarction without residual deficits
CPT/HCPCS: 36415; 71045-TC; 80048-TC; 80076-TC; 84484-TC; 85025-TC